=== PATIENT | male | born 1940 | race Caucasian/White ===

== ENCOUNTER 2024-04-20 15:34 | Outpatient (CLI) | payer MEDICARE, OTHER | END 2024-04-20 15:35 | disposition home or self-care (01) | LOC: CSHCP 15:34 | PROVIDERS: ATTEND Internal Medicine Critical Care Medicine | DX: R06.09 Other forms of dyspnea (principal); R94.2 Abnormal results of pulmonary function studies | CPT/HCPCS: 94060; 94618; 94726; 94729 ==

== ENCOUNTER 2024-08-24 09:05 | Outpatient (CLI) | payer MEDICARE, OTHER | END 2024-08-24 09:06 | disposition home or self-care (01) | LOC: CSHMRI 09:05 | PROVIDERS: ATTEND Radiology Radiation Oncology | DX: C79.31 Secondary malignant neoplasm of brain (principal); C43.9 Malignant melanoma of skin, unspecified | CPT/HCPCS: 70553; 76376 ==

== ENCOUNTER 2025-03-01 08:43 | Outpatient (CLI) | payer MEDICARE, OTHER | END 2025-03-01 08:44 | disposition home or self-care (01) | LOC: CSHMRI 08:43 | PROVIDERS: ATTEND Radiology Radiation Oncology | DX: C79.31 Secondary malignant neoplasm of brain (principal) | CPT/HCPCS: 70553; 76376 ==

== ENCOUNTER 2025-06-14 13:34 | Outpatient (CLI) | payer MEDICARE, OTHER ==
[2025-06-14 14:10] LABS: Estimated GFR - POC 54.0
== END 2025-06-14 13:35 | disposition home or self-care (01) ==
LOC: CSHMRI 13:34
PROVIDERS: ATTEND Radiology Radiation Oncology
DX: C79.31 Secondary malignant neoplasm of brain (principal); G93.89 Other specified disorders of brain
CPT/HCPCS: 36415; 70553; 76376; 82565